=== PATIENT | female | born 1950 | race Two or more races ===

== ENCOUNTER 2017-02-03 21:40 | Emergency (ER) | payer OTHER ==
[~2017-02-03] VITALS: Ht 160 cm; Wt 69.4 kg
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
[2017-02-03] MEDS ORDERED: FLUORESCEIN SODIUM OPHTH 1 EA STRIP ONE (23:20)
[2017-02-03] MEDS ORDERED: TETRACAINE HCL/PF 0.5% UD 2 ML BOTTLE ONE (23:20)
[2017-02-03] MEDS ORDERED: TETRACAINE HCL/PF 0.5% UD 2 ML BOTTLE OP ONE (23:30)
[2017-02-03] MEDS ORDERED: FLUORESCEIN SODIUM OPHTH 1 EA STRIP OP ONE (23:30)
--- NOTE | 2017-02-04 01:18 | NUR ---
CALLED [facility] THEY STATES NO OPTHAMAOLOGY
--- NOTE | 2017-02-04 01:20 | NUR ---
20G RIGHT WIRST IV STARTED, BLOOD SAMPLE OBTAINED AND SENT TO LAB. MEDICATED PT ORDERED
--- NOTE | 2017-02-04 01:23 | NUR ---
TALKED TO ANTON FROM [facility], THEY WERE NOT SURE IF THEY HAD [facility]ALM[facility]Y [facility] BUT ASKED TO FAX ALL THE INFORMATION ANYWAYS [phone]
[2017-02-04] MEDS ORDERED: ONDANSETRON HCL/PF 4 MG/2 ML VIAL IV ONE (01:30)
[2017-02-04] MEDS ORDERED: MORPHINE SULFATE INJ 4 MG/ML DISP.SYRIN IV ONE (01:30)
[2017-02-04] MEDS ORDERED: MORPHINE SULFATE INJ 4 MG/ML DISP.SYRIN ONE (01:30)
--- NOTE | 2017-02-04 01:31 | NUR ---
CALLED [facility] FROM [facility], FAXING FACESHEET AND CT REPORT TO [phone]
[2017-02-04] MEDS ORDERED: ONDANSETRON HCL/PF 4 MG/2 ML VIAL ONE ×2 (01:32→04:25)
[2017-02-04 01:41] LABS: BASOPHILS % (AUTO) 0.2 % (0.0-2.0); EOSINOPHILS # (AUTO) 0.1 /CMM (0.0-0.7); EOSINOPHILS % (AUTO) 0.7 % (0.0-6.0); HEMATOCRIT 46 % (33-45); HEMOGLOBIN 15.4 g/dL (11.5-14.8); LYMPHOCYTES # (AUTO) 1.4 /CMM (0.8-4.8); LYMPHOCYTES % (AUTO) 14.2 % (20.0-44.0); MEAN CORPUSCULAR HEMOGLOBIN 31 PG (26.0-33.0); MEAN CORPUSCULAR HGB CONC 34 g/dl (31.0-36.0); MEAN CORPUSCULAR VOLUME 91 fL (82-100); MONOCYTES # (AUTO) 0.6 /CMM (0.1-1.30); MONOCYTES % (AUTO) 5.6 % (2.0-12.0); NEUTROPHILS # (AUTO) 7.9 /CMM (1.8-8.9); NEUTROPHILS % (AUTO) 79.3 % (43.0-81.0); PLATELET COUNT (AUTO) 250 /CMM (150-450); RDW COEFFICIENT OF VARIATION 12.9 (11.5-15.0); RED BLOOD CELL COUNT(AUTO) 5.01 MIL/uL (4.0-5.2); WHITE BLOOD COUNT (AUTO) 9.9 K/uL (4.3-11.0)
[2017-02-04 01:53] LABS: CREATININE 0.7 mg/dL (0.6-1.3); POTASSIUM 3.7 mmol/L (3.5-5.1)
[2017-02-04 01:56] LABS: INR 0.89 (0.87-1.13); PROTHROMBIN TIME 9.5 SECS (9.5-12.7)
[2017-02-04 02:03] VITALS: BP 188/98
--- NOTE | 2017-02-04 02:04 | NUR ---
VITAL SIGNS UPDATED.
--- NOTE | 2017-02-04 02:04 | NUR ---
REASSESED PATIENT. PT STATES PAIN IS ABOUT 3/10 AND DOESNT NEED ANYMORE PAIN MEDICATION. PT STATES SHE WILL LET ME KNOW IS SHE NEEDS MORE PAIN MEDICATION
--- NOTE | 2017-02-04 02:46 | NUR ---
JANITORIAL TECH AT BED SIDE FOR BLOOD DRAW
[2017-02-04] MEDS ORDERED: HYDROMORPHONE 1 MG/1 ML DISP.SYRIN ONE (02:48)
[2017-02-04] MEDS ORDERED: HYDROMORPHONE 1 MG/1 ML DISP.SYRIN IV ONE (03:00)
--- NOTE | 2017-02-04 03:05 | NUR ---
ACCEPTED BY DR. GUTIÉRREZ AT [facility]. NURSE REPORT#: [facility]#: [id number]
--- NOTE | 2017-02-04 03:05 | NUR ---
NITIN WYNN MD IS PRESENTING TO FLYNN OLIVEIRA TRAUMA . MD CUMMINGS STATES HE WILL ACCEPT PATIENT, BUT TRY TO SEE IF THEY WILL ACCEPT PATIENT BEFORE TRANSFERRING PATIENT. TAI GODINEZ CALLED. WILL CONTINUE TO MONITOR
--- NOTE | 2017-02-04 03:12 | NUR ---
REPORT GIVEN TO NOHELIA NEGRETE AT [facility]
--- NOTE | 2017-02-04 03:12 | NUR ---
[facility] CALLED, ETA 1 HOUR
[2017-02-04] MEDS ORDERED: IV NS 0.9% 1,000 ML BAG IV ONE (04:00)
[2017-02-04] MEDS ORDERED: ONDANSETRON HCL/PF - ER 4 MG/2 ML VIAL IV ONE (04:30)
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
--- NOTE | 2017-02-04 04:40 | NUR ---
PATIENT HAD AN EPISODE OF NAUSEA. MEDICATED PT ORDERED
== END 2017-02-04 04:42 | disposition short-term general hospital (02) ==
LOC: ER 21:43
DX: S02.82XA Fracture of other specified skull and facial bones, left side, initial encounter for closed fracture (principal); H05.232 Hemorrhage of left orbit; Y04.0XXA Assault by unarmed brawl or fight, initial encounter; Y92.89 Other specified places as the place of occurrence of the external cause; Y93.89 Activity, other specified; Y99.8 Other external cause status
CPT/HCPCS: 36415; 70486; 80048; 85025; 85730; 96374; 96375; 96376; 99285; A4606 ×2; J1170; J2270; J2405 ×3; Z7610